=== PATIENT | female | born 1940 | race Caucasian/White ===

== ENCOUNTER → 2016-11-26 | Outpatient (CLI) | payer OTHER ==
[~2016-11-26] MED LIST: ALPR-412 PO; ASPI81TA28 PO; CALC0.2510 PO; CALC500C70 PO; CRG125 PO; DIPH-437 PO; ESTRO TOP; FLUT0.15 NAE; FLUT1INH7 INH; HYDR-5688 PO; HYZ/10015 PO; LEVO-217 PO; LEVO50TA PO; LOSA100T66 PO; MONT1TAB3 PO; NXM/40 PO; PHEN-775 PO; PRLSR20 PO; SULF800T23 PO; SYMIN160 INH; TYLOTC500 PO; VNTHFA/IN INH
== END | disposition home or self-care (01) ==
LOC: C.LAB1850 11:56
PROVIDERS: ATTEND Internal Medicine Endocrinology, Diabetes & Metabolism
DX: Z86.39 Personal history of other endocrine, nutritional and metabolic disease (principal); M81.0 Age-related osteoporosis without current pathological fracture

== ENCOUNTER → 2016-11-30 | Outpatient (CLI) | payer OTHER ==
--- NOTE | 2016-11-30 11:56 | DIAGNOSTIC IMAGING REPORT ---
THYROID ULTRASOUND HISTORY: Thyroid nodules MULTIPLE THYROID NODULES COMPARISON: 03/08/2015 FINDINGS: Right lobe: Maximum dimension 3.7 cm. Several nodules are present largest of which has a 9 mm maximum dimension area in Left lobe: Maximum dimension 4.4 cm. Several thyroid nodules measuring up to 1.4 x 1.0 cm. Isthmus: No nodules. IMPRESSION: Multicystic multinodular thyroid with nodules stable to slightly diminished in prominence from the prior study Electronically signed by: Mitul Abebe M.D. 11/30/2016 11:55 AM Dictated Date/Time: 11/30/2016 11:53 AM
== END | disposition home or self-care (01) ==
LOC: C.ULTR 10:40
PROVIDERS: ATTEND Internal Medicine Endocrinology, Diabetes & Metabolism
DX: E04.2 Nontoxic multinodular goiter (principal)

== ENCOUNTER → 2016-12-15 | Outpatient (CLI) | payer OTHER | END | disposition home or self-care (01) | LOC: C.MAMM 08:44 | PROVIDERS: ATTEND Internal Medicine Endocrinology, Diabetes & Metabolism | DX: E21.3 Hyperparathyroidism, unspecified (principal); M81.0 Age-related osteoporosis without current pathological fracture ==

== ENCOUNTER → 2017-02-22 | Outpatient (CLI) | payer OTHER ==
[~2017-02-22] MED LIST changes: +LOSA100T30 PO; -LOSA100T66 PO
--- NOTE | 2017-02-22 12:12 | DIAGNOSTIC IMAGING REPORT ---
CHEST 2 VIEWS ROUTINE CLINICAL HISTORY: J45.41 MODERATE PERSISTENT ASTHMA COMPARISON STUDY: 07/18/2014 FINDINGS: The cardiac and mediastinal contours are normal. There is no evidence of focal pulmonary consolidation. There is no evidence of failure. No pleural effusions are visualized.[ There is a linear opacity within the left infrahilar region, representing either a vessel or scar/atelectasis. IMPRESSION: No active disease in the chest. Electronically signed by: Kike Saez M.D. 02/22/2017 12:11 PM Dictated Date/Time: 02/22/2017 12:10 PM
== END | disposition home or self-care (01) ==
LOC: C.RAD1850 11:47
PROVIDERS: ATTEND Nurse Practitioner Family
DX: J45.41 Moderate persistent asthma with (acute) exacerbation (principal)

== ENCOUNTER → 2017-03-25 | Outpatient (CLI) | payer OTHER ==
[2017-03-25 16:56] LABS: BLOOD UREA NITROGEN 11 mg/dl (7-18); BUN/CREATININE RATIO 12.5 (10-20); CREATININE 0.91 mg/dl (0.60-1.20)
== END | disposition home or self-care (01) ==
LOC: C.LAB1850 15:46
PROVIDERS: ATTEND Nurse Practitioner Family
DX: R31.29 Other microscopic hematuria (principal); R31.0 Gross hematuria; R82.8 Abnormal findings on cytological and histological examination of urine

== ENCOUNTER → 2017-03-30 | Outpatient (CLI) | payer OTHER ==
[~2017-03-30] MED LIST changes: +OPTIRAY 320 IV PRN
--- NOTE | 2017-03-30 09:07 | DIAGNOSTIC IMAGING REPORT ---
CT OF THE ABDOMEN AND PELVIS WITH AND WITHOUT CONTRAST HEMATURIA PROTOCOL CLINICAL HISTORY: Gross hematuria. COMPARISON STUDY: Abdominal ultrasound August 05, 2016. TECHNIQUE: Unenhanced and split bolus phase imaging of the abdomen and pelvis was performed. Injection of 93 cc Optiray [address] DOSE: 1347.84 mGycm FINDINGS: Visualized portions the lower chest demonstrate mild cardiomegaly and a water attenuation 5 x 1.3 cm lobulated abnormality along the right aspect of the pericardium which is consistent with a pericardial cyst. There are several hepatic cysts. There are calcified granulomas within the spleen. The pancreas and adrenal glands are normal. There is no biliary or pancreatic ductal dilatation status post cholecystectomy. There is no evidence for a bowel obstruction. There is no lymphadenopathy. A small fat-containing umbilical hernia is present. There is sigmoid diverticulosis without evidence for acute diverticulitis. There are no suspicious skeletal lesions. Left-sided parapelvic cysts are noted. There are no ureteral calculi. Note is made of a 5 mm calculus within lower pole of the left kidney. There is a 1.7 cm right renal pelvis calculus and right pelvicalyceal urothelial thickening as well as mild thickening of the proximal right ureter with minimal adjacent infiltration. No discrete mass is identified. There is moderate to marked right renal atrophy. There is no hydronephrosis. There is slight prominence of the right collecting system. No bladder abnormality is identified by CT. No solid renal lesion is identified. IMPRESSION: 1. 1.7 cm right renal pelvis calculus. No hydronephrosis. Moderate right pelvicalyceal urothelial thickening may be related to the calculus but is nonspecific and an infectious could appear similar. Although considered less likely, a neoplastic process could appear similar. No discrete mass. 2. Moderate to marked right renal atrophy. 3. 5 mm left renal calculus. No ureteral calculi. Electronically signed by: Margarito Paris M.D. 03/30/2017 9:06 AM Dictated Date/Time: 03/30/2017 8:55 AM
== END | disposition home or self-care (01) ==
LOC: C.CTS 08:09
PROVIDERS: ATTEND Nurse Practitioner Family
DX: R31.0 Gross hematuria (principal)

== ENCOUNTER → 2017-04-15 | Outpatient (CLI) | payer OTHER ==
[~2017-04-15] MED LIST changes: -LOSA100T30 PO; +LOSA100T66 PO; -OPTIRAY 320 IV PRN
--- NOTE | 2017-04-15 11:58 | DIAGNOSTIC IMAGING REPORT ---
CHEST 2 VIEWS ROUTINE CLINICAL HISTORY: COUGH (786.2) dyspnea COMPARISON STUDY: 02/22/2017 FINDINGS: The bones soft tissues and hemidiaphragms are normal. The cardiomediastinal silhouette is normal. The lungs are clear. The pulmonary vasculature is normal. IMPRESSION: Negative chest. Electronically signed by: Mitul Abebe M.D. 04/15/2017 11:57 AM Dictated Date/Time: 04/15/2017 11:56 AM
== END | disposition home or self-care (01) ==
LOC: C.RADBBURG 11:40
PROVIDERS: ATTEND Physician Assistant
DX: R05 Cough (principal)

== ENCOUNTER 2017-05-10 06:53 | Day surgery (SDC) | payer OTHER ==
[2017-04-29 12:35] VITALS: BMI 28.0
--- NOTE | 2017-04-29 13:06 | PAT Medication Instructions ---
Service Date Apr 29, 2017. Current Home Medication List Acetaminophen/Diphenhydramine (Tylenol Pm), 1 TAB PO HS Albuterol Hfa (Ventolin Hfa), Unknown Dose INH Q6H PRN for asthma Alprazolam (Alprazolam), 0.25 MG PO PRN Calcitriol (Rocaltrol Cap), 0.25 MCG PO BID Calcium/Vitamin D (Os-Andry 500 Plus D), 1 TAB PO BID Carvedilol (Coreg *), 12.5 MG PO BID Esomeprazole Magnesium (Nexium), 40 MG PO QPM Fluticasone Furoate-Vilanterol (Breo Ellipta 200-25 Mcg/INH), 1 PUFF INH QAM Fluticasone Propionate (Nasal) (Flonase Allergy Relief), 1 SPRAY LUBA HS Levothyroxine Sodium (Synthroid), 50 MCG PO QAM Losartan Potassium & Hydrochlo (Losartan Potassium/Hydroc), 1 TAB PO QAM Montelukast Sodium (Singulair), 10 MG PO HS [estro cream 1%], 1 APPLN TOP prn Medication Instructions For Your Scheduled Surgery - Hold the following medications 24 hours prior to surgery: [estro cream 1%], 1 APPLN TOP prn - Hold the following medications the morning of surgery: Calcitriol (Rocaltrol Cap), 0.25 MCG PO BID Calcium/Vitamin D (Os-Andry 500 Plus D), 1 TAB PO BID Losartan Potassium & Hydrochlo (Losartan Potassium/Hydroc), 1 TAB PO QAM - Take the following medications the morning of surgery with a sip of water OTHERWISE NOTHING TO EAT OR DRINK AFTER MIDNIGHT: Carvedilol (Coreg *), 12.5 MG PO BID Levothyroxine Sodium (Synthroid), 50 MCG PO QAM Alprazolam (Alprazolam), 0.25 MG PO PRN Albuterol Hfa (Ventolin Hfa), Unknown Dose INH Q6H PRN for asthma (use if needed ; BRING TO HOSPITAL) Fluticasone Furoate-Vilanterol (Breo Ellipta 200-25 Mcg/INH), 1 PUFF INH QAM - Take the following medications as scheduled the night before surgery: Calcitriol (Rocaltrol Cap), 0.25 MCG PO BID Calcium/Vitamin D (Os-Andry 500 Plus D), 1 TAB PO BID Carvedilol (Coreg *), 12.5 MG PO BID Alprazolam (Alprazolam), 0.25 MG PO PRN Acetaminophen/Diphenhydramine (Tylenol Pm), 1 TAB PO HS Esomeprazole Magnesium (Nexium), 40 MG PO QPM Fluticasone Propionate (Nasal) (Flonase Allergy Relief), 1 SPRAY LUBA HS Montelukast Sodium (Singulair), 10 MG PO HS Albuterol Hfa (Ventolin Hfa), Unknown Dose INH Q6H PRN for asthma If you have any questions please call us at [phone] or [phone] or [phone]
[2017-04-29 13:40] LABS: BASO % 0.5 %; BASO ABS # 0.05 K/uL (0-0.2); COMPLETE YES; EOS % 1.7 %; HEMATOCRIT 39.9 % (37-47); IG% 0.1 %; LYMPH % 25.4 %; LYMPH ABS # 2.48 K/uL (1.2-3.4); MEAN CELL VOLUME 89.1 fL (80-100); MEAN CORPUSCULAR HEMOGLOBIN 28.1 pg (25-34); MEAN CORPUSCULAR HGB CONC 31.6 g/dl (32-36); MEAN PLATELET VOLUME 9.8 fL (7.4-10.4); MONO % 9.9 %; NEUT % 62.4 %; PLATELET COUNT 279 K/uL (130-400); RED BLOOD COUNT 4.48 M/uL (4.2-5.4); WHITE BLOOD COUNT 9.75 K/uL (4.8-10.8)
[2017-04-29 13:49] LABS: URINE APPEARANCE CLEAR (CLEAR); URINE BILIRUBIN NEG (NEG); URINE COLOR YELLOW; URINE EPITHELIAL CELL AUTO 20-30 /lpf (0-5); URINE NITRITE NEG (NEG); URINE PH 6.5 (4.5-7.5); URINE SPECIFIC GRAVITY 1.013 (1.000-1.030); UROBILINOGEN NEG (NEG)
[2017-04-29 14:03] LABS: MANUAL MICROSCOPIC REQUIRED? NO; REVIEW REQ? NO
[2017-04-29 16:33] LABS: BUN/CREATININE RATIO 14.3 (10-20); CALCIUM 9.9 mg/dl (8.5-10.1); CREATININE 0.98 mg/dl (0.60-1.20); POTASSIUM 3.6 mmol/L (3.5-5.1)
[~2017-05-10] VITALS: Ht 154.9 cm; Wt 69.5 kg
[~2017-05-10 06:53] MED LIST changes: -ASPI81TA28 PO; +CIPROFLOXACIN / D5W 400 MG IV SCH; -HYDR-5688 PO; -HYZ/10015 PO; -LEVO-217 PO; -PHEN-775 PO; -PRLSR20 PO; -SULF800T23 PO; -SYMIN160 INH; -TYLOTC500 PO
[2017-05-10 07:12] VITALS: BP 142/66; PULSE 61; TEMP 36.7; O2SAT 97; Ht 154.9 cm; Wt 69.5 kg
[2017-05-10] MEDS ORDERED: SULF800T23 PO ×2 (07:31→10:03)
[2017-05-10] MEDS ORDERED: ASPI81TA28 PO (07:44)
[2017-05-10] MEDS ORDERED: ONDANSETRON INJ 2 MG/ML 2 ML VIAL IV PRN (08:00)
[2017-05-10] MEDS ORDERED: ATROPINE SULFATE 0.1 MG/ML 5ML SYR IV PRN (08:00)
[2017-05-10] MEDS ORDERED: EpHEDrine SULFATE INJ 50 MG/ML AMP IV PRN (08:00)
--- NOTE | 2017-05-10 08:37 | History & Physical Bridge Note ---
H&P Re-Evaluation Bridge Note: I have examined the patient, reviewed the History & Physical and in the interval since the performance of the History & Physical I have noted the following changes of clinical significance: No changes noted
[2017-05-10] MEDS ORDERED: ONDANSETRON INJ 2 MG/ML 2 ML VIAL ONE (08:44)
[2017-05-10] MEDS ORDERED: DEXAMETHASONE SOD INJ 4 MG/ML VIAL ONE (08:44)
[2017-05-10] MEDS ORDERED: FENTANYL CITRATE INJ 50 MCG/1 ML 2 ML VIAL ONE (08:44)
[2017-05-10] MEDS ORDERED: LIDOCAINE HCL 2% 2 ML VIAL (20MG/ML) ONE (08:44)
[2017-05-10] MEDS ORDERED: MIDAZOLAM HCL 1 MG/ML 2ML VIAL ONE (08:44)
[2017-05-10] MEDS ORDERED: PROPOFOL IV EMULSION 10 MG/ML 20 ML VIAL IV ONE (08:44)
[2017-05-10] MEDS ORDERED: CONRAY 30% 150ML BOTTLE ONE (09:08)
[2017-05-10] MEDS ORDERED: EpHEDrine SULFATE 50MG/5ML SYR ONE (09:17)
[2017-05-10] MEDS ORDERED: HYDR-5688 PO (10:03)
[2017-05-10] MEDS ORDERED: PHEN-775 PO (10:03)
--- NOTE | 2017-05-10 10:05 | Discharge Instructions ---
Discharge Instructions Date of Service May 10, 2017. Admission Reason for Admission: Stones Discharge Discharge Diagnosis / Problem: kidney stones Discharge Goals Goal(s): Decrease discomfort, Improve function, Increase independence, Improve disease control, Prevent Disease Progression Activity Recommendations Activity Limitations: resume your previous activity Lifting Limitations: none Exercise/Sports Limitations: none May Resume Sexual Activity: when tolerated Shower/Bathe: no limitations Driving or Machine Use: resume 1 day after discharge . Instructions / Follow-Up Instructions / Follow-Up Please keep your previously scheduled follow-up with Dr. Alves's office. He may call you to schedule your next procedure. Discharge Diet Recommended Diet: Regular Diet Procedures Procedures Performed: cystscopy, right ureteroscopy, right retrograde pyelogram, laser lithotripsy, placement of right ureteral stent Pending Studies Studies pending at discharge: no Medical Emergencies . Who to Call and When: Medical Emergencies: If at any time you feel your situation is an emergency, please call 911 immediately. . Non-Emergent Contact Non-Emergency issues call your: Urologist Call Non-Emergent contact if: you have a fever, temperature is above 101.5, your pain is not controlled, your pain is worsening . . "Provider Documentation" section prepared by Juan Meeks. . VTE Core Measure Inpt VTE Proph given/why not?: Treatment not indicated [place] Drug Monitoring Program Search Results: patient reviewed within database, no issues identified
[2017-05-10] MEDS ORDERED: SODIUM CHLORIDE 0.9% 1000ML 1,000 ML IV SCH (10:06)
--- NOTE | 2017-05-10 10:12 | [facility] Operative Report ---
Operative Report Operative Date May 10, 2017. 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 right renal stone for chemical analysis Drains 6 Micronesian by 24 cm Anesthesia Gen. Complication(s) None Disposition Recovery Room / PACU (stable) Indications Hematuria and renal stone Description of Procedure Dylon Mendoza was identified in the preoperative holding area, appropriate informed consent was reviewed and completed and the patient was transported to the operating suite. Upon arrival she received appropriate preoperative antibiotics in the form of ciprofloxacin. Adequate general anesthesia was achieved and she was placed in dorsal lithotomy position. Following sterile prep and drape I entered the bladder with a 22 Micronesian cystoscope in 30 lens. Full inspection of the bladder was carried out. No mucosal abnormalities were noted. Ureteral orifices were in orthotopic position. I cannulated the right ureteral orifice with a sensor wire and a 10 Micronesian double-lumen catheter. The wire advanced to the kidney under fluoroscopic guidance without difficulty. Of note there was a very large opacity visualized in the presumed area of the renal pelvis. A second wire was guided into the kidney as well. I then withdrew the 10 Micronesian double-lumen catheter and passed a ureteral access sheath. I subsequently passed a flexible ureteroscope into the kidney. Full renoscopy was carried out. She has a very large calculus floating freely in the renal pelvis. There appeared to the other smaller fragments adjacent to the stone. The mucosa of the renal pelvis was quite inflamed without evidence of tumor. This mucosa was quite friable and even with tractional from my scope, there was a small amount of bleeding. I passed a 400 laser fiber I commenced laser lithotripsy. I was able to fragment the vast majority of the stone. Towards end of the case visualization was somewhat compromised secondary to a small amount of bleeding, and I concluded the case. On fluoroscopic evaluation and vast majority of the stone appears to been treated. A significant amount of stone debris was irrigated out of the kidney during the course of this case. A portion of the stone debris was collected and passed off the table as a specimen. I performed a very careful exit ureteroscopy while simultaneously withdrawing a ureteral access sheath. There is no evidence of ureteral trauma. I repositioned the 10 Micronesian double-lumen catheter over a wire and performed retrograde pyelogram. There is no extravasation. I placed a 6 Micronesian by 24 cm double-J ureteral stent over the existing wire. There was a good curl in the upper pole of the kidney as well as in the bladder. Bladder was decompressed and the case concluded. Patient was extubated and taken to the PACU in stable condition. I attest to the content of the Intraoperative Record and any orders documented therein. Any exceptions are noted below.
[2017-05-10] MEDS ORDERED: TAMSULOSIN HCL 0.4 MG CAP PO ONE (10:15)
[2017-05-10] MEDS ORDERED: HYDROCODONE/ACETAMOPHEN 5/325MG TAB PO PRN ×2 (10:15)
--- NOTE | 2017-05-10 10:32 | Anesthesiology Progress Note ---
Anesthesia Post Op Note Date & Time May 10, 2017 at 10:32 Vital Signs Pain Intensity: 0 Vital Signs Past 12 Hours Date Time Temp Pulse Resp B/P (MAP) Pulse Ox O2 Delivery O2 Flow Rate FiO2 05/10/17 10:23 55 20 05/10/17 10:23 52 20 100 05/10/17 10:22 143/59 05/10/17 10:18 56 14 100 05/10/17 10:18 56 14 05/10/17 10:17 136/64 05/10/17 10:13 53 20 05/10/17 10:13 56 20 100 05/10/17 10:12 132/64 05/10/17 10:10 54 16 132/64 100 Mask 13 05/10/17 10:08 54 21 05/10/17 10:08 53 21 99 05/10/17 10:06 130/79 05/10/17 10:04 123/67 05/10/17 10:03 60 98 05/10/17 10:03 60 05/10/17 10:03 36.0 62 16 123/67 98 Mask 13 05/10/17 07:12 36.7 61 20 142/66 (91) 97 Room Air Notes Mental Status: alert / awake / arousable, participated in evaluation Pt Amnestic to Procedure: Yes Nausea / Vomiting: adequately controlled Pain: adequately controlled Airway Patency, RR, SpO2: stable & adequate BP & HR: stable & adequate Hydration State: stable & adequate Anesthetic Complications: no major complications apparent
[2017-05-10] MEDS: FENTANYL CITRATE INJ 50 MCG/1 ML 2 ML VIAL IV PRN ×4 (10:43→10:58)
[2017-05-10] MEDS ORDERED: LACTATED RINGER'S 1000ML 1,000 ML IV ONE (11:00)
[2017-05-10] MEDS: HYDROmorphone INJ 1 MG/ML SYR IV PRN ×2 (11:06→11:11)
[2017-05-10] MEDS ORDERED: KETOROLAC TROMETHAMINE 30 MG/ML VIAL ONE (11:11)
[2017-05-10 11:40] VITALS: BP 143/58; PULSE 68; TEMP 36.5; O2SAT 97
[2017-05-10 12:10] VITALS: BP 142/67; PULSE 65; TEMP 36.5; O2SAT 94
[2017-05-10] MEDS ORDERED: ONDANSETRON 4MG OD TAB PO STA (12:58)
[2017-05-10 13:00] VITALS: BP 135/71; PULSE 75; TEMP 36.5; O2SAT 97
== END 2017-05-10 13:10 | disposition home or self-care (01) ==
LOC: C.ACU 06:53
PROVIDERS: ATTEND Urology
DX: N20.0 Calculus of kidney (principal); J45.909 Unspecified asthma, uncomplicated; E78.5 Hyperlipidemia, unspecified; I10 Essential (primary) hypertension; E03.9 Hypothyroidism, unspecified; M81.0 Age-related osteoporosis without current pathological fracture; Z85.828 Personal history of other malignant neoplasm of skin; Z90.49 Acquired absence of other specified parts of digestive tract; Z90.710 Acquired absence of both cervix and uterus; Z82.49 Family history of ischemic heart disease and other diseases of the circulatory system; Z80.3 Family history of malignant neoplasm of breast; Z80.0 Family history of malignant neoplasm of digestive organs; Z82.3 Family history of stroke; Z83.3 Family history of diabetes mellitus

== ENCOUNTER → 2017-05-17 | Outpatient (CLI) | payer OTHER ==
[~2017-05-17] MED LIST changes: +ASPI81TA28 PO; -CIPROFLOXACIN / D5W 400 MG IV SCH; +HYDR-5688 PO; +PHEN-775 PO; +SULF800T23 PO; +SYMIN160 INH
--- NOTE | 2017-05-17 08:17 | DIAGNOSTIC IMAGING REPORT ---
KUB HISTORY: 76 years-old Female N20.0 Calculus of kidney. Follow-up exam. COMPARISON: Retrograde cystourethrogram 05/10/2017 CT 03/30/2017 TECHNIQUE: KUB radiograph FINDINGS: Right-sided ureteral stent appears to be in satisfactory position. There are multiple calculi in the region of the right renal pelvis status post apparent lithotripsy. Previously noted large 1.7 cm calculus seen on CT dated 03/30/2017 is no longer present. No calculi are seen along the course of the right ureteral stent. Vascular calcifications are seen within the pelvis. 4 mm calculus of the inferior pole left kidney is redemonstrated. Bowel gas pattern is nonobstructive. Cholecystectomy clips noted. Degenerative changes are seen within the pelvis, hips and lumbar spine. No fracture. IMPRESSION: 1. Right-sided ureteral stent in place with multiple calculi seen within the region of the right renal pelvis. No renal calculi are seen along the course of the right ureter. 2. 4 mm calculus of the inferior pole left kidney is unchanged The above report was generated using voice recognition software. It may contain grammatical, syntax or spelling errors. Electronically signed by: Trey Abdi M.D. 05/17/2017 8:16 AM Dictated Date/Time: 05/17/2017 8:10 AM
== END | disposition home or self-care (01) ==
LOC: C.RAD 07:55
PROVIDERS: ATTEND Nurse Practitioner Family
DX: N20.0 Calculus of kidney (principal)

== ENCOUNTER → 2017-06-04 | Outpatient (CLI) | payer OTHER ==
[~2017-06-04] MED LIST changes: -PHEN-775 PO
--- NOTE | 2017-06-04 13:15 | DIAGNOSTIC IMAGING REPORT ---
(CHEST) THORAX WITHOUT CLINICAL HISTORY: Cough, asthma, malignant melanoma. COMPARISON STUDY: Chest x-ray dated 04/13/2017, CT scan dated 07/18/2014 CT DOSE: 548.80 mGycm TECHNIQUE: CT of the thorax was performed from the thoracic inlet to the lung bases. Images are reviewed in the axial, sagittal, and coronal planes. IV contrast was not administered for this examination. A dose lowering technique was utilized adhering to the principles of ALARA. FINDINGS: Thyroid: There is a multinodular thyroid gland which contains calcification. Thoracic aorta: The thoracic aorta is normal in course and caliber, noting standard 3 vessel arch anatomy. Heart: There are coronary artery calcifications. Lungs and pleural spaces: No pleural effusions are visualized. There is no focal pulmonary consolidation. There are 2 calcified left lower lobe granulomas. There is a new solid 2.5 mm noncalcified left lower lobe pulmonary nodule as visualized in image #[id number]. There is a stable solid 2 mm left lower lobe pulmonary nodule as visualized in image #[id number]. There is a stable solid 2.5 mm left apical pulmonary nodule as visualized in image #[id number]. There is a new solid 2 mm right upper lobe pulmonary nodule as visualized no #68/281. Mediastinum: There is no pathologic adenopathy by size criteria. Kimberli: There are calcified left hilar lymph nodes, likely postinflammatory Axilla: There is no evidence of pathologic axillary lymphadenopathy Upper abdomen: There are multiple left lobe hepatic cysts Skeletal structures: There are no lytic or blastic osseous lesions. IMPRESSION: 1. No evidence of pathologic adenopathy 2. No evidence of focal pulmonary consolidation 3. Calcified left hilar lymph nodes likely postinflammatory 4. Left lower lobe granulomatous calcifications 5. Tiny nonspecific noncalcified pulmonary nodules. There is a new solid 2.5 mm left lower lobe pulmonary nodule, and new solid 2 mm right upper lobe pulmonary nodule. 12 month follow-up is recommended unless clinical circumstances dictated otherwise. Electronically signed by: Kike Saez M.D. 06/04/2017 1:13 PM Dictated Date/Time: 06/04/2017 1:04 PM
[2017-06-04 13:20] LABS: BASO % 0.5 %; BASO ABS # 0.04 K/uL (0-0.2); COMPLETE YES; EOS % 4.6 %; HEMATOCRIT 38.8 % (37-47); IG% 0.1 %; LYMPH % 23.8 %; LYMPH ABS # 2.02 K/uL (1.2-3.4); MEAN CELL VOLUME 89.4 fL (80-100); MEAN CORPUSCULAR HEMOGLOBIN 28.3 pg (25-34); MEAN CORPUSCULAR HGB CONC 31.7 g/dl (32-36); MEAN PLATELET VOLUME 9.8 fL (7.4-10.4); MONO % 7.2 %; NEUT % 63.8 %; PLATELET COUNT 354 K/uL (130-400); RED BLOOD COUNT 4.34 M/uL (4.2-5.4)
[2017-06-04 13:23] LABS: PARTIAL THROMBOPLASTIN RATIO 0.9; PROTHROMBIN TIME (PATIENT) 10.3 SECONDS (9.0-12.0)
[2017-06-04 14:06] LABS: BLOOD UREA NITROGEN 10 mg/dl (7-18); BUN/CREATININE RATIO 10.6 (10-20); CALCIUM 10.2 mg/dl (8.5-10.1); CARBON DIOXIDE 28 mmol/L (21-32); CHLORIDE 105 mmol/L (98-107); CREATININE 0.96 mg/dl (0.60-1.20); GLUCOSE 97 mg/dl (70-99); POTASSIUM 3.2 mmol/L (3.5-5.1); SODIUM 138 mmol/L (136-145)
== END | disposition home or self-care (01) ==
LOC: C.CTS 12:07
PROVIDERS: ATTEND Physician Assistant
DX: C43.59 Malignant melanoma of other part of trunk (principal); R05 Cough

== ENCOUNTER 2017-06-10 07:32 | Day surgery (SDC) | payer OTHER ==
--- NOTE | 2017-06-09 22:47 | HISTORY & PHYSICAL EXAMINATION ---
DATE OF ADMISSION: 06/10/2017 HISTORY OF PRESENT ILLNESS: A 76-year-old female, who presented to the outpatient office on 06/02/2017 for continuation of care of [id number]-lwtdefm cough. The patient was initially seen in February 2017 with history of frequent recurrent bronchitis present since childhood. Symptoms were provoked with the spring and fall seasons as well as exposure to mold and mildew. She had been prescribed Symbicort in the past and then transitioned to Breo 200/25 for formulary purposes more recently. The patient evaluated in the office on 04/15/2017 with symptoms of low-grade fever and acute harsh cough productive of green sputum. She reported at that time a history of sick contact in her sister. She completed a course of doxycycline and prednisone taper and initially felt improved. Chest x-ray was without any evidence of infiltrate or acute pulmonary process. Unfortunately, following completion of her acute treatment, her symptoms returned and were accompanied by sinus congestion with clear rhinorrhea. Additionally, she reported some intermittent symptoms of acid reflux as well. Of note, she has required prednisone x3 since the spring. She did attempt to return to Symbicort with her symptoms; however, is not sure if this has been helpful. PAST MEDICAL HISTORY: 1. Cough variant asthma. 2. Basal cell carcinoma. 3. Acid reflux. 4. Hyperparathyroid. 5. Hypothyroid. 6. Osteoporosis. 7. History of melanoma. 8. History of gastric ulcer. 9. History of squamous cell carcinoma of the skin. 10. Nephrolithiasis. PAST SURGICAL HISTORY: 1. Breast surgery - lumpectomy. 2. Cataract surgery. 3. Nose surgery. 4. Cholecystectomy. 5. Hysterectomy. 6. Knee surgery. 7. Parathyroid surgery. 8. Tubal ligation. FAMILY HISTORY: 1. Cerebral thrombosis. 2. Hypertension. 3. Breast cancer. 4. Cardiac disorder. 5. Hypertension. 6. Colon cancer. 7. CVA. 8. Diabetes mellitus. 9. Liver cancer. 10. Lung disease. 11. Myocardial infarction. 12. Polycystic kidney disease. 13. Nephrolithiasis. SOCIAL HISTORY: 1. The patient is . 2. The patient is a lifelong nonsmoker. 3. The patient reports social alcohol use. CURRENT MEDICATIONS: 1. Montelukast sodium 10 mg oral tablet: Take 1 tablet at bedtime. 2. Symbicort 160/4.5 mcg per ACT inhalation aerosol: Inhale 2 puffs twice daily, rinse mouth after use. 3. Calcitriol 0.25 mcg oral capsule: Take 1 capsule daily. 4. Calcium carbonate, vitamin D 500/400 mg unit oral tablet: Take 1 tablet twice daily. 5. Vitamin D 2000 unit oral capsule: Take 1 tablet daily with the main meal. 6. Albuterol 2.5 mg per 3 mL nebulizer solution: Take as directed. 7. Alprazolam 0.25 mg oral tablet: Take 1 tablet daily as needed. 8. Carvedilol 12.5 mg oral tablet: Take 1 tablet twice daily. 9. Estrone 1% cream: Use as directed. 10. Fluticasone propionate 50 mcg per ACT nasal suspension: Use 1 spray each nostril twice daily. 11. Levothyroxine sodium 50 mcg oral tablet: Take 1 tablet every morning. 12. Losartan potassium/hydrochlorothiazide 100/12.5 mg oral tablet: Take 1 tablet daily. 13. Nexium 40 mg oral capsule: Take 1 capsule delayed release daily. ALLERGIES: No known drug allergies. PHYSICAL EXAMINATION: VITAL SIGNS: Blood pressure 122/76, right upper extremity, sitting, height 5 feet 1 inch, weight 151 pounds, temperature 97.9 degrees Fahrenheit, respiratory rate 18 respirations per minute, oxygen saturation 96% on room air, heart rate 78 beats per minute. CONSTITUTIONAL: Well-developed, well-nourished female. No acute distress. HEAD: Positive facial symmetry. EYES: EOMI, right 3 mm, left 2 mm -- no conjunctival injection. MOUTH: Mallampati 1. No erythema, exudate, or postnasal drip. NECK: Trachea is midline without adenopathy or masses. RESPIRATORY: Nonlabored respirations. Coarse cough, persistent throughout exam. No wheeze, no rales, no rhonchi. No clubbing or cyanosis. CARDIOVASCULAR: Regular rate and rhythm. No murmurs, rubs or gallops. +2 radial pulses bilaterally. Less than 1 second capillary refill. ABDOMEN: Soft, active bowel sounds INTEGUMENTARY: No rashes or ecchymosis. MUSCULOSKELETAL/EXTREMITIES: Moving and developed symmetrically. No peripheral edema. No calf tenderness. NEUROLOGIC: Alert and oriented. Data recall intact. Appropriate affect. REVIEW OF SYSTEMS: CONSTITUTIONAL: Denies fevers or chills. EYES: Negative. ENT: Negative. Denies any pharyngitis or vocal hoarseness. CARDIOVASCULAR: Denies chest pain or palpitations. RESPIRATORY: Positive for cough as noted in the HPI. No orthopnea or dyspnea with exertion. HEMATOLOGIC/LYMPHATICS: Negative. ASSESSMENT AND PLAN: A 76-year-old female, who presents for continuation of care of persistent cough with the setting of cough variant asthma. Symptoms had temporarily resolved again with acute treatment, but has once again recurred. Additionally, she complains of sinus reflux symptoms. 1. Complete sinus x-ray - 3 views. 2. Begin ranitidine QHS. 3. Bronchoscopy with appropriate pre-procedural blood work to determine if there is any additional reason for recurrent exacerbation. 4. CT of the chest without contrast. Patient case reviewed and agree with plan MTDD
[~2017-06-10] VITALS: Ht 156.2 cm; Wt 68.0 kg
[2017-06-10] VITALS (14 sets, daily range): BP systolic 142–183; BP diastolic 62–98; PULSE 54–73; TEMP 36.4–36.9; O2SAT 90–100; Ht 156.2 cm; Wt 68.0 kg
[~2017-06-10 07:32] MED LIST changes: -SYMIN160 INH
[2017-06-10] MEDS ORDERED: FENTANYL CITRATE 100 MCG 2 ML CARP IV ONE (07:33)
[2017-06-10] MEDS ORDERED: MIDAZOLAM HCL 5 MG/ML 1 ML VIAL IV ONE ×2 (07:33→10:15)
--- NOTE | 2017-06-10 08:12 | Procedure Note ---
Pre-Mod Sedation Assessment General Date of Moderate Sedation: Jun 10, 2017. Review Cardiovascular: regular rate, rhythm, no edema, no gallop, no JVD, no murmur Abdomen: normal bowel sounds, non tender, soft, no organomegaly, no pulsatile mass Lungs: chest non-tender, lungs clear, normal breath sounds, no respiratory distress Airway Class: II Pre-Sedation Airway Assessment Oral Cavity: WNL Able to Visualize Vocal Cords: Yes Short Thick Neck: No Smoking Status: Never Smoker Mallampati Classification: Class II ASA Classification: Class III Procedure Planning Contraindications-for Mod Sed: None Yes Notes The planned sedation has been discussed with the patient and consent obtained. I have identified the patient, determined the appropriateness of sedation and have assessed the patient immediately prior to the procedure. All medicine(s) and interventions are by my order.
[2017-06-10] MEDS ORDERED: SYMIN160 INH (08:16)
[2017-06-10] MEDS ORDERED: NURSING VERBAL MED ORDER ONE ×2 (08:45→10:00)
[2017-06-10] MEDS ORDERED: D5W AND 1/2NSS 1,000 ML IV SCH (09:00)
--- NOTE | 2017-06-10 09:46 | Bronchoscopy Procedure Note ---
Bronchoscopy Procedure Note Procedure: Bronchoscopy, conscious sedation, bronchial lavage Consent: Obtained through the patient placed into the chart Pre-procedural diagnosis: Chronic cough Post-procedural diagnosis: Chronic cough Start time: 919 End time: 935 Total time: 16 minutes Analgesia: 2% liquid lidocaine: Via nebulizer 4% gel lidocaine: Via right naris 2% liquid lidocaine: Via bronchoscopy Sedation: Versed IV: 3mg Fentanyl IV: 75g Procedure: The Olympus video bronchoscope was used for this procedure and passed down through the right naris Right naris/posterior naris/posterior oropharynx: Anatomically within normal limits Glottis: Anatomically within normal limits Vocal cords: Proper abduction and abduction, anatomically within normal limits Subglottis/trachea/Nini: Anatomically within normal limits Right bronchial tree: Right mainstem bronchus: Anatomically within normal limits Right upper lobe: Anatomically within normal limits Bronchus intermedius: Anatomically within normal limits Right middle lobe: Anatomically within normal limits Right lower lobe: Anatomically within normal limits Findings: No significant findings noted Left bronchial tree: Left mainstem bronchus: Anatomically within normal limits Left upper lobe: Anatomically within normal limits Lingula: Anatomically within normal limits Left lower lobe: Anatomically within normal limits Findings: No significant findings noted Bronchial alveolar lavage: Right middle lobe EBL: None Complications: None Follow-up: In the [facility]
--- NOTE | 2017-06-10 09:53 | Discharge Instructions ---
Discharge Instructions Date of Service Jun 10, 2017. Admission Reason for Admission: Cough, Asthma, Malignant Melanoma Discharge Discharge Diagnosis / Problem: chronic cough Discharge Goals Goal(s): Diagnostic testing Activity Recommendations Activity Limitations: resume your previous activity . Instructions / Follow-Up Instructions / Follow-Up Follow-up in the [facility] pulmonary department with provider Randi Green Current Hospital Diet Patient's current hospital diet: Discharge Diet Recommended Diet: Regular Diet Procedures Procedures Performed: Bronchoscopy, bronchial lavage, conscious sedation Pending Studies Studies pending at discharge: no Medical Emergencies . Who to Call and When: Medical Emergencies: If at any time you feel your situation is an emergency, please call 911 immediately. . Non-Emergent Contact Non-Emergency issues call your: Vice President Financial . . "Provider Documentation" section prepared by Riccardo Ritchie. . VTE Core Measure Inpt VTE Proph given/why not?: Treatment not indicated
[2017-06-10] MEDS ORDERED: FENTANYL CITRATE INJ 50 MCG/1 ML 2 ML VIAL IV ONE (10:15)
[2017-07-07 11:15] LABS: HERPES SIMPLEX CULT SOURCE RESPIRATORY-R MIDDLE; HERPES SIMPLEX VIRUS CULT NOT ISOLATED (NOT ISOLATED)
== END 2017-06-10 12:14 | disposition home or self-care (01) ==
LOC: C.ACU 07:32
PROVIDERS: ATTEND Internal Medicine Critical Care Medicine
DX: R05 Cough (principal); J45.909 Unspecified asthma, uncomplicated; I10 Essential (primary) hypertension; E03.9 Hypothyroidism, unspecified; M81.0 Age-related osteoporosis without current pathological fracture; Z85.828 Personal history of other malignant neoplasm of skin; Z90.710 Acquired absence of both cervix and uterus; Z80.3 Family history of malignant neoplasm of breast; Z79.899 Other long term (current) drug therapy

== ENCOUNTER → 2017-06-16 | Outpatient (CLI) | payer OTHER ==
[~2017-06-16] MED LIST changes: -FLUT1INH7 INH; -HYDR-5688 PO; -SULF800T23 PO; +SYMIN160 INH
--- NOTE | 2017-06-16 09:10 | DIAGNOSTIC IMAGING REPORT ---
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 TECHNIQUE: Single supine view of the abdomen was obtained. COMPARISON: 05/17/2017. FINDINGS: Evaluation of the kidneys is slightly limited due to stool and bowel gas most prominently over the right kidney. Interval removal of the right ureteral stent. Previously noted calcifications projecting over the right kidney are not well visualized on the current exam. Cholecystectomy clips. Atherosclerosis. Nonobstructive bowel gas pattern. Degenerative changes of the lumbar spine. Previously noted left lower pole renal calculus is again visualized. IMPRESSION: 1. Interval removal of the right ureteral stent with nonvisualization of right renal calculi, possibly indicating clearance. Evaluation slightly limited due to overlying bowel gas and stool. 2. Unchanged left lower pole renal calculus. Electronically signed by: Jefferson Luis M.D. 06/16/2017 9:09 AM Dictated Date/Time: 06/16/2017 9:07 AM
== END | disposition home or self-care (01) ==
LOC: C.RAD 08:48
PROVIDERS: ATTEND Urology
DX: N20.0 Calculus of kidney (principal)

== ENCOUNTER → 2017-06-16 | Outpatient (CLI) | payer OTHER | END | disposition home or self-care (01) | LOC: C.LABSPEC 17:14 | PROVIDERS: ATTEND Urology | DX: N20.0 Calculus of kidney (principal) ==

== ENCOUNTER → 2017-11-12 | Outpatient (CLI) | payer OTHER ==
[~2017-11-12] MED LIST changes: +LOSA100T30 PO; -LOSA100T66 PO
== END | disposition home or self-care (01) ==
LOC: C.LAB1850 10:32
PROVIDERS: ATTEND Internal Medicine Endocrinology, Diabetes & Metabolism
DX: E03.9 Hypothyroidism, unspecified (principal)

== ENCOUNTER → 2017-11-17 | Outpatient (CLI) | payer OTHER ==
[2017-11-17 15:53] LABS: ALBUMIN 3.5 gm/dl (3.4-5.0); CREATININE 0.78 mg/dl (0.60-1.20)
== END | disposition home or self-care (01) ==
LOC: C.LAB1850 14:50
PROVIDERS: ATTEND Internal Medicine Endocrinology, Diabetes & Metabolism
DX: M81.0 Age-related osteoporosis without current pathological fracture (principal)

== ENCOUNTER → 2017-11-24 | Day surgery (SDC) | payer OTHER ==
[~2017-11-24] VITALS: Ht 157.5 cm; Wt 66.0 kg
[~2017-11-24] MED LIST changes: +ACETAMINOPHEN 500 MG TAB PO ONE; +ACETAMINOPHEN 500 MG TAB PO SCH; +ADVIN25/60 INH; +ZOLEDRONIC ACID INJ 5 MG in EMPTY BAG 0 ML IV SCH
[2017-11-24 10:25] VITALS: BP 149/89; PULSE 59; TEMP 36.7; O2SAT 93; Ht 157.5 cm; Wt 66.0 kg
== END | disposition home or self-care (01) ==
LOC: C.MTU 09:35
PROVIDERS: ATTEND Internal Medicine Endocrinology, Diabetes & Metabolism
DX: M81.0 Age-related osteoporosis without current pathological fracture (principal)

== ENCOUNTER 2017-12-09 09:58 | Emergency (ER) | payer OTHER ==
[~2017-12-09] VITALS: Ht 157.5 cm; Wt 67.9 kg
[~2017-12-09 09:58] MED LIST changes: -ACETAMINOPHEN 500 MG TAB PO ONE; -ACETAMINOPHEN 500 MG TAB PO SCH; -SYMIN160 INH; -ZOLEDRONIC ACID INJ 5 MG in EMPTY BAG 0 ML IV SCH
[2017-12-09 10:08] VITALS: Ht 157.5 cm; Wt 67.9 kg
[2017-12-09] MEDS ORDERED: METHYLPREDNISOLONE 125 MG VIAL IM STA (10:34)
[2017-12-09] MEDS ORDERED: ALBUT/IPRATROP 3MG/0.5MG NEB 3 ML VIAL INH STA (10:34)
[2017-12-09] MEDS ORDERED: BENZONATATE 100MG CAP PO ONE (10:45)
--- NOTE | 2017-12-09 11:24 | DIAGNOSTIC IMAGING REPORT ---
CHEST 2 VIEWS ROUTINE HISTORY: 77 years-old Female cough eval for pna acute cough with clinical concern for pneumonia COMPARISON: Chest CT 06/04/2017, chest radiographs 04/15/2017 TECHNIQUE: PA and lateral views of the chest FINDINGS: Cardiomediastinal and hilar silhouettes are within normal limits. Mild atherosclerosis of the aorta. Calcified granulomas of the left lung base are noted. There is no pneumothorax, pleural effusion, focal airspace consolidation or overt pulmonary edema. Degenerative changes are seen within the shoulders and spine. Cholecystectomy clips are noted. IMPRESSION: 1. No acute process. 2. Prior granulomatous disease. The above report was generated using voice recognition software. It may contain grammatical, syntax or spelling errors. Electronically signed by: Trey Abdi M.D. 12/09/2017 11:23 AM Dictated Date/Time: 12/09/2017 11:21 AM
[2017-12-09 11:56] LABS: INFLUENZA B ANTIGEN Neg for Influ B (NEG)
[2017-12-09] MEDS ORDERED: PRED20TA PO (12:23)
[2017-12-09] MEDS ORDERED: BENZ100C84 PO (12:23)
[2017-12-09 12:27] VITALS: BP 159/82; PULSE 71; TEMP 36.9; O2SAT 98
--- NOTE | 2017-12-09 17:54 | EMERGENCY ROOM VISIT NOTE ---
History Report prepared by Ming: Chuck Singh Under the Supervision of: Dr. Riccardo Lomas M.D. First contact with patient: 10:26 Chief Complaint: COUGH Stated Complaint: COUGH ASTHMA History of Present Illness The patient is a 77 year old female who presents to the Emergency Room with complaints of a worsening cough for the past 3 weeks. The patient states that she has a history of asthma, and she was exposed to diesel fumes which caused her to have this cough which has worsened. She states that when her asthma acts up she coughs. She additionally states that she had some congestion yesterday, and she has bringing up phlegm when she coughs, and she does not think that it is green. She states that she took Mucinex last night, and she uses an Advair for her asthma. The patient denies any fever, chest pain, nausea , vomiting, leg swelling, and body aches. The patient reports that her recently had a cough ten days ago, and her [id number] had the flu and pneumonia in early October. Source of History: patient Onset: 3 weeks ago Position: other (global) Quality: other (cough) Timing: worsening Associated Symptoms: No fevers, No chest pain, No nausea, No vomiting Note: Associated symptoms: Light headed sometimes with coughing. Review of Systems See HPI for pertinent positives & negatives. A total of 10 systems reviewed and were otherwise negative. Past Medical & Surgical Medical Problems: (1) Asthma (2) Benign hypertension (3) Bronchitis (4) Cholecystectomy (5) Cholecystitis (6) Gastroesophageal reflux disease (7) Hypothyroidism (8) Hysterectomy (9) Kidney disease (10) Kidney stone (11) Osteoporosis (12) Vaginitis Family History Cancer Diabetes mellitus Gallbladder disease Heart disease Hypertension Kidney disease Kidney stones Lung disease Social History Smoking Status: Never Smoker Alcohol Use: occasionally Marital Status: Housing Status: lives with family Occupation Status: retired Current/Historical Medications Scheduled Acetaminophen/Diphenhydramine (Tylenol Pm), 1 TAB PO HS Alprazolam (Alprazolam), 0.25 MG PO PRN Aspirin (Aspirin Ec), 81 MG PO QAM Calcitriol (Rocaltrol Cap), 0.25 MCG PO BID Calcium/Vitamin D (Os-Andry 500 Plus D), 1 TAB PO BID Carvedilol (Coreg *), 12.5 MG PO BID Esomeprazole Magnesium (Nexium), 40 MG PO QPM Fluticasone Prop/Salmeterol (Advair Diskus 250/50 60 Dose), 1 INH BID Fluticasone Propionate (Nasal) (Flonase Allergy Relief), 1 SPRAY LUBA HS Levothyroxine Sodium (Synthroid), 50 MCG PO QAM Losartan Potassium & Hydrochlo (Losartan Potassium/Hydroc), 1 TAB PO QAM Montelukast Sodium (Singulair), 10 MG PO HS Prednisone (Prednisone), 3 TAB PO DAILY Scheduled PRN Albuterol Hfa (Ventolin Hfa), Unknown Dose INH Q6H PRN for asthma Benzonatate (Tessalon Perles), 100 MG PO Q8 PRN for Cough Allergies Coded Allergies: Ciprofloxacin (Verified Adverse Reaction, Intermediate, VOMITING, 12/09/17) Physical Exam Vital Signs Date Time Temp Pulse Resp B/P (MAP) Pulse Ox O2 Delivery O2 Flow Rate FiO2 12/09/17 12:27 36.9 71 20 159/82 98 12/09/17 11:50 71 20 159/82 98 Room Air 12/09/17 10:32 Room Air 12/09/17 10:08 36.9 75 20 172/84 97 Room Air Physical Exam Constitutional: Vital signs reviewed. Eyes: Pupils are equal round reactive to light. Conjunctiva are noninjected. ENT: Pharynx is clear without erythema or exudate. Mucous membranes are moist. Neck supple without meningeal signs. Respiratory: Coughing throughout the exam. Slight scattered wheezing. Breath sounds are equal bilaterally. Cardiovascular: Regular rate and rhythm. No rubs or gallops. GI: Soft, nondistended and nontender. Bowel sounds are present. Musculoskeletal: No peripheral edema. No lower extremity tenderness. Integumentary: No cyanosis. Neurological: The patient is awake and alert. No focal deficits. Psychiatric: Normal affect. Medical Decision & Procedures ER Provider Diagnostic Interpretation: Radiology results as stated below per my review and the radiologist's interpretation: CHEST 2 VIEWS ROUTINE HISTORY: 77 years-old Female cough eval for pna acute cough with clinical concern for pneumonia COMPARISON: Chest CT 06/04/2017, chest radiographs 04/15/2017 TECHNIQUE: PA and lateral views of the chest FINDINGS: Cardiomediastinal and hilar silhouettes are within normal limits. Mild atherosclerosis of the aorta. Calcified granulomas of the left lung base are noted. There is no pneumothorax, pleural effusion, focal airspace consolidation or overt pulmonary edema. Degenerative changes are seen within the shoulders and spine. Cholecystectomy clips are noted. IMPRESSION: 1. No acute process. 2. Prior granulomatous disease. The above report was generated using voice recognition software. It may contain grammatical, syntax or spelling errors. Electronically signed by: Trey Abdi M.D. 12/09/2017 11:23 AM Dictated Date/Time: 12/09/2017 11:21 AM Laboratory Results Test 12/09/17 11:00 Influenza Type A Antigen Neg for Influ A (NEG) Influenza Type B Antigen Neg for Influ B (NEG) Laboratory results as reviewed by me. Medications Administered Medications (Trade) Dose Ordered Sig/Patience Route Start Time Stop Time Status Last Admin Dose Admin Albuterol/ Ipratropium (Duoneb) 3 ml NOW STAT INH 12/09/17 10:34 12/09/17 10:36 DC 12/09/17 11:02 3 ML Benzonatate (Tessalon Perles Cap) 100 mg NOW ONCE PO 12/09/17 10:45 12/09/17 10:46 DC 12/09/17 11:02 100 MG Methylprednisolone Sodium Succinate (Solu-Medrol IV) 125 mg NOW STAT IM 12/09/17 10:34 12/09/17 10:36 DC 12/09/17 11:01 125 MG ED Course 1026: The patient was evaluated in room B12. A complete history and physical exam was performed. 1034: Solu-Medrol 125mg IM, DuoNeb 3ml INH 1045: Tessalon Perles 100mg PO 1221: I reevaluated the patient, and she was feeling better. I discussed the test results with her. She will be discharged home. Medical Decision This is a 77-year-old female presents with a cough. Differential diagnosis includes acute asthma exacerbation, bronchitis, pneumonia, influenza, URI. I did perform a limited focused review of portions of the patient's old chart on the electronic medical record. The patient had a bronchoscopy in 06/10 for a chronic cough which showed no significant findings. She had a CT Chest done at that time, and it showed some pulmonary nodules. I did evaluate the patient as noted above. The patient is presenting with significant coughing. She does state that she has significant coughing when she has asthma exacerbations more so than she has wheezing. I did treat her with a DuoNeb here. She was also given Solu-Medrol IM. She was also given Tessalon Perles. I did order and personally review the patient' chest x-ray as described above. There is no evidence of pneumonia. A rapid flu test was obtained and was negative. I did reassess the patient. Her coughing seems to improve slightly. Wheezing is improved on reexamination. I did discuss the test results with the patient. At this time I see no indication for antibiotics. I did recommend she follow-up closely with her doctor. She was discharged with a prescription for prednisone and Tessalon Perles. Medication Reconcilliation Current Medication List: was personally reviewed by me Blood Pressure Screening Patient's blood pressure: Elevated blood pressure Blood pressure disposition: Referred to PCP Impression Primary Impression: Asthma exacerbation Additional Impression: Cough Scribe Attestation The scribe's documentation has been prepared under my direct and personally reviewed by me in its entirety. I confirm that the note above accurately reflects all work, treatment, procedures, and medical decision making performed by me. Departure Information Dispostion Home / Self-Care Prescriptions Benzonatate (Tessalon Perles) 100 Mg Cap 100 MG PO Q8 Y for Cough, #20 CAP Prov: Riccardo Lomas M.D. 12/09/17 Prednisone (Prednisone) 20 Mg Tab 3 TAB PO DAILY, #12 TAB FOR 4 DAYS Prov: Riccardo Lomas M.D. 12/09/17 Referrals Gail Weiss (PCP) Forms HOME CARE DOCUMENTATION FORM, IMPORTANT VISIT INFORMATION Patient Instructions Asthma - [facility], My [facility] Additional Instructions You have been examined and treated today on an emergency basis only. This is not a substitute for, or an effort to provide, complete comprehensive medical care. It is impossible to recognize and treat all injuries or illnesses in a single emergency department visit. It is therefore important that you follow up closely with your physician. Call as soon as possible for an appointment. Return for worsening symptoms or if you develop fever, vomiting, chest pain or any other concerning symptoms. Problem Qualifiers Primary Impression: Asthma exacerbation Asthma severity: moderate Asthma persistence: unspecified Qualified Codes: J45.901 - Unspecified asthma with (acute) exacerbation
== END 2017-12-09 12:30 | disposition home or self-care (01) ==
LOC: C.EDB 09:59
DX: J45.901 Unspecified asthma with (acute) exacerbation (principal); I10 Essential (primary) hypertension; K21.9 Gastro-esophageal reflux disease without esophagitis; E03.9 Hypothyroidism, unspecified; M81.0 Age-related osteoporosis without current pathological fracture; Z79.82 Long term (current) use of aspirin; Z79.51 Long term (current) use of inhaled steroids; Z88.1 Allergy status to other antibiotic agents; Z80.9 Family history of malignant neoplasm, unspecified; Z83.3 Family history of diabetes mellitus; Z83.79 Family history of other diseases of the digestive system; Z82.49 Family history of ischemic heart disease and other diseases of the circulatory system; Z84.1 Family history of disorders of kidney and ureter

== ENCOUNTER → 2018-03-02 | Outpatient (CLI) | payer OTHER ==
[~2018-03-02] MED LIST changes: +BENZ100C84 PO; -ESTRO TOP; +PRED20TA PO
--- NOTE | 2018-03-02 14:58 | DIAGNOSTIC IMAGING REPORT ---
KUB CLINICAL HISTORY: N20.0 Calcium kidney feornV52.0 UTI (urinary tract infection)RAD nephrocalcinosis COMPARISON STUDY: 06/16/2017. FINDINGS: Unchanging lower pole left renal calcification. Remainder the left kidney appears unremarkable. Right kidney is obscured by overlying bowel content. It shows no change compared to the prior study within these limitations. Several pelvic vascular calcifications are present. These are stable compared to the prior exam. IMPRESSION: 1. Unchanging calcification lower pole left kidney. 2. Nonvisualization of the right kidney due to overlying bowel content. The above report was generated using voice recognition software. It may contain grammatical, syntax or spelling errors. Electronically signed by: Mitul Abebe M.D. 03/02/2018 2:57 PM Dictated Date/Time: 03/02/2018 2:55 PM
== END | disposition home or self-care (01) ==
LOC: C.RAD1850 14:34
PROVIDERS: ATTEND Urology
DX: N20.0 Calculus of kidney (principal); N39.0 Urinary tract infection, site not specified

== ENCOUNTER → 2018-06-14 | Outpatient (CLI) | payer OTHER ==
[~2018-06-14] MED LIST changes: -BENZ100C84 PO; -PRED20TA PO
== END | disposition home or self-care (01) ==
LOC: C.LAB1850 12:37
PROVIDERS: ATTEND Internal Medicine Endocrinology, Diabetes & Metabolism
DX: N20.0 Calculus of kidney (principal); M81.0 Age-related osteoporosis without current pathological fracture

== ENCOUNTER 2020-04-03 07:00 | Observation (INO) ==
--- NOTE | 2020-04-03 08:17 | History & Physical Bridge Note ---
Date of Service April 03, 2020 History & Physical Bridge Note I have examined the patient, reviewed the History & Physical and in the interval since the performance of the History & Physical I have noted the following changes of clinical significance: no changes noted
--- NOTE | 2020-04-03 08:17 | Pre Anesthesia Assessment ---
Date of Service April 03, 2020 Pre Sedation Assessment Vital Signs Temp Pulse Resp BP Pulse Ox 04/03/20 07:18 36.7 C 68 16 151/92 H 97 Cardiovascular RRR, no murmur, no edema Respiratory normal respiratory effort, lungs clear to auscultation Pre-Sedation Airway Assessment Smoking Status: Never smoker Hx Sleep Apnea: No Short, Thick Neck: No Thyromental Distance: > or= 3.5 Finger Breadths Oral Cavity: + WNL Mallampati Class: II ASA: ASA3 NPO Status Date of Last Intake of Fluids: 04/03/20 Time of Last Intake of Fluids: 06:00 Last Oral Intake of Fluids Comment: sip with meds Date of Last Intake of Solid Food: 04/02/20 Time of Last Intake of Solid Foods: 21:00 Procedure Planning Contraindications for Sedation: none Current Medications Reviewed: Yes Notes The planned sedation has been discussed with the patient. Informed Consent was obtained. I have identified the patient, determined the appropriateness of sedation and have assessed the patient immediately prior to the procedure. All medicine(s) and interventions are by my order.
[2020-04-03] MEDS ORDERED: MIDAZOLAM HCL 1 MG/ML 2ML VIAL ONE (08:26)
[2020-04-03] MEDS ORDERED: HEPARIN (PORCINE) 1000 UNIT/ML 10 ML (CATH LAB USE ONLY) ONE (08:26)
[2020-04-03] MEDS ORDERED: NiCARDipine HCL INJ 2.5 MG/ML 10 ML AMP ONE (08:26)
[2020-04-03] MEDS ORDERED: fentaNYL citrate 100 MCG/2 ML VIAL ONE (08:26)
[2020-04-03] MEDS ORDERED: NITROGLYCERIN/D5W 100MCG/ML 20ML SYR ONE (08:27)
[2020-04-03] MEDS ORDERED: NITROGLYCERIN SL 0.4 MG/TAB TAB ONE ×2 (09:06→10:04)
[2020-04-03] MEDS ORDERED: METOPROLOL TARTRATE 1 MG/ML VIAL IV ONE ×3 (09:08→09:17)
--- NOTE | 2020-04-03 09:42 | Cardiac Catheterization ---
Cardiac Cath Procedure Brief Procedure Date April 03, 2020 Pre-Procedure Diagnosis Pre-Procedure Diagnosis: Angina and Positive Stress Test AUC Score AUC Score: 7 Post-Procedure Diagnosis Post-Procedure Diagnosis: Severe CAD (Single-vessel) Procedure(s) Performed Procedure(s) Performed: Coronary Angiography Paste Mixer Robert Olvera MD Inspecting And Testing Lead Hand(s) Alfredo Leone Estimated Blood Loss Estimated Blood Loss: <15cc Medication(s) Medication(s): Fentanyl (12.5 mcg IV), Heparin (5000 units IV), Lidocaine 1% (Local infiltration access site), Nicardipine (250 mcg intra-arterial after arterial sheath insertion), Nitroglycerin (0.4 mg sublingual) and Versed (1 mg IV) Medication(s): Metoprolol 5 mg IV x3 Preliminary Findings Codominant coronary anatomy with extremely small caliber right coronary artery Single-vessel significant coronary disease with 70 to 80% LAD stenosis at the juncture of its mid and apical portion Paroxysmal atrial fibrillation with typical angina and chest pressure induced during procedure resolving with sublingual nitroglycerin and IV metoprolol Left main: Mildly calcified vessel normal length of modest caliber and no obstruction Left anterior descending: Left anterior descending is a long type III vessel reaching well around the apex. It is moderately tortuous in its mid and apical portion. The vessel gives rise to a large septal branch in its proximal third, a moderately large bifurcating diagonal branch in its midportion and courses to terminate beyond the apex. Within the left anterior descending there is diffuse moderate irregularities with a discrete 70 to 80% stenosis at the junction of its mid and apical portions. The proximal vessel has a 30% narrowing with mild calcification and the origin of the left anterior descending diagonal is narrowed by 30%. Left circumflex: Large vessel, codominant distribution, gives rise to a large bifurcating obtuse marginal and a single posterior lateral branch. Left circumflex has moderate irregularities with a focal 30% narrowing in the proximal portion of the obtuse marginal. Posterior lateral branch is small. Right coronary artery: Very modest in caliber giving rise to 2 right ventricular branches and accessory PDA. Recommendations Recommendations: PCI without planned CABG Fluids (cc crystalloids) Fluids (cc crystalloids): 60 Anesthesia Start time 08 41, stop time 0910 Procedural Complication(s) None Disposition Recovery Room\PACU
[2020-04-03] MEDS ORDERED: CLOPIDOGREL BISULFATE 300 MG TAB ONE (10:00)
--- NOTE | 2020-04-03 10:00 | Cardiac Catheterization ---
Cardiac Cath Procedure Full Procedure Date April 03, 2020 Pre-Procedure Diagnosis Pre-Procedure Diagnosis: Angina and Positive Stress Test AUC Score AUC Score: 7 Post-Procedure Diagnosis Post-Procedure Diagnosis: Severe CAD (Single-vessel) Procedure(s) Performed Procedure(s) Performed: Coronary Angiography Ultrasound Spec Robert Olvera MD Medical Equipment Repairer(s) Alfredo Leone Estimated Blood Loss Estimated Blood Loss: <15cc Medication(s) Medication(s): Fentanyl (12.5 mcg IV), Heparin (5000 units IV), Lidocaine 1% (Local infiltration access site), Nicardipine (250 mcg intra-arterial after arterial sheath insertion), Nitroglycerin (0.4 mg sublingual) and Versed (1 mg IV) Summary of Findings Codominant coronary anatomy with extremely small caliber right coronary artery Single-vessel significant coronary disease with 70 to 80% LAD stenosis at the juncture of its mid and apical portion Paroxysmal atrial fibrillation with typical angina and chest pressure induced during procedure resolving with sublingual nitroglycerin and IV metoprolol Left main: Mildly calcified vessel normal length of modest caliber and no obstruction Left anterior descending: Left anterior descending is a long type III vessel reaching well around the apex. It is moderately tortuous in its mid and apical portion. The vessel gives rise to a large septal branch in its proximal third, a moderately large bifurcating diagonal branch in its midportion and courses to terminate beyond the apex. Within the left anterior descending there is diffuse moderate irregularities with a discrete 70 to 80% stenosis at the junction of its mid and apical portions. The proximal vessel has a 30% narrowing with mild calcification and the origin of the left anterior descending diagonal is narrowed by 30%. Left circumflex: Large vessel, codominant distribution, gives rise to a large bifurcating obtuse marginal and a single posterior lateral branch. Left circumflex has moderate irregularities with a focal 30% narrowing in the proximal portion of the obtuse marginal. Posterior lateral branch is small. Right coronary artery: Very modest in caliber giving rise to 2 right ventricular branches and accessory PDA. Impression: Single-vessel obstructive disease mid apical portion of a very large type III LAD. Patient referred for coronary intervention Hemodynamics Rest Ao:: 174/81/116 Final Ao: 142/86/109 LV: N/A Recommendations Recommendations: PCI without planned CABG Radiation Exposure (mGy) 594 Contrast (mls) 70 Fluids (cc crystalloids) Fluids (cc crystalloids): 60 Anesthesia Start time 08 41, stop time 0910 Procedural Complication(s) Patient developed chest pressure and transient hypotension as well as atrial fibrillation with moderately elevated ventricular response rate, 110 bpm during procedure. Symptoms resolved with sublingual nitroglycerin, IV metoprolol 5 mg x 3 with return to sinus rhythm Disposition Recovery Room\PACU I attest to the content of the Intraoperative Record and any orders documented therein. Any exceptions are noted below. ACC Data: Flag Signalman Cardiac Status Clinical evaluation leading to the procedure 79-year-old female with multiple cardiac risk factors used been experiencing symptoms of chest pain followed by lightheadedness and near syncope. Symptoms were reproduced during stress echocardiogram CAD Presenation: Stable angina Anginal Classification: CCS III Heart Failure: No Cardiogenic Shock within 24 Hours: No Cardiac Arrest within 24 Hours: No Imaging Studies Past 6 Months: Yes Stress Studies Past 6 Months: Yes Standard Exercise Test: No Stress Echocardiogram: Yes - Positive Coronary Anatomy Dominant: Co-Dominant Left Main (% Stenosis): Normal LAD (% Stenosis): Proximal (30%) and Mid (80%) D1 (% Stenosis): Proximal (30%) OM1 (% Stenosis): Proximal (30%) RCA (% Stenosis): Normal (Very small caliber vessel) Diagnostic Physicians Name: Robert Olvera MD Status: Elective Closure Device Percutaneous Entry Location: Radial Recommendations: PCI without planned CABG
--- NOTE | 2020-04-03 10:11 | Cardiac Catheterization ---
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 Cardiac Status Clinical evaluation leading to the procedure CAD Presenation: Unstable angina Anginal Classification: CCS III Heart Failure: No Cardiogenic Shock within 24 Hours: No Cardiac Arrest within 24 Hours: No Imaging Studies Past 6 Months: Yes Stress Studies Past 6 Months: Yes Stress Echocardiogram: Yes - Positive Diagnostic Physicians Name: Ward Valencia MD Status: Elective Closure Device Percutaneous Entry Location: Radial Closure Device: Radial Band Recommendations: PCI without planned CABG PCI Indication: + Stress Test and Unstable Angina Lesion Segment Name: Mid LAD Culprit Artery: Yes Stenosis Prior to Rx (%): 80 Chronic Total Occlusion: No IVUS: No FFR: No Pre-Procedure GERI Flow: 3 Previously Treated Lesion: No Lesion Complexity: Non-High/Non-C Lesion Length (mm): 12 Thrombus Present: No Bifurcation Lesion: No Guidewire Across Lesion: Stenosis Post-Procedure (%): 0 Post-Procedure GERI Johnny w: 3 Devices(s) Deployed: Yes Yes Intraprocedure Events Significant Disection: No Perforation: No Cardiac Cath Procedure Full Procedure Date April 03, 2020 Pre-Procedure Diagnosis Pre-Procedure Diagnosis: Angina and Positive Stress Test AUC Score AUC Score: 7 Post-Procedure Diagnosis Post-Procedure Diagnosis: Severe CAD (Single-vessel) and Successful PCI Procedure(s) Performed Procedure(s) Performed: Coronary Angiography and Drug Eluting Stent Chief Controller Ward Valencia MD Programmer Analyst Consultant(s) Alfredo Leone Estimated Blood Loss Estimated Blood Loss: <15cc Medication(s) Medication(s): Clopidogrel, Fentanyl (12.5 mcg IV), Heparin (5000 units IV), Nicardipine (250 mcg intra-arterial after arterial sheath insertion), Nitroglycerin (0.4 mg sublingual) and Versed (1 mg IV) Summary of Findings Indication: Angina, positive stress test Access: 6 Fr slender right radial artery Catheters: EBU 3.5 guide Findings: For full details of patient's coronary angiography please see cath report dictated by Dr. Olvera. Briefly, patient found to have severe single vessel disease with a 80 % stenosis involving the mid to distal LAD. Decision to proceed with PCI. -- PCI -- Antithrombotic therapy: Heparin, clopidogrel Procedure: Left main cannulated with EBU 3.5 guide Aviation Safety Equipment Technician 50 wire passed across lesion into distal vessel Mid LAD lesion predilated with 2.0 compliant balloon Dilated lesion stented with 2.25 x 22 mm yareli drug-eluting Stent post-dilated with stent balloon IC vasodilators administered for spasm Post procedure GERI 3 flow, stent well expanded with minimal residual stenosis and no apparent cardiac complications. Arterial Closure: TR band Summary: 1. Successful PCI of mid LAD with single drug-eluting stent (2.25 x 22 mm Yareli). Recommendations: To PCU for continued monitoring Loaded with clopidogrel 600 mg in Marketing Professor Continue dual-antiplatelet therapy for at least 6 months Continue statin, and ASCVD risk factor modification Consult cardiac Rehab Hemodynamics Rest Ao:: 174/81/116 Final Ao: 142/86/109 LV: -- Recommendations Recommendations: PCI without planned CABG Specimens Specimens: None Radiation Exposure (mGy) 594 Contrast (mls) 70 Fluids (cc crystalloids) Fluids (cc crystalloids): 60 Drains Drains: None Anesthesia Moderate Procedural Complication(s) None Disposition PCU I attest to the content of the Intraoperative Record and any orders documented therein. Any exceptions are noted below. [facility] Card Cath Procedure Codes Moderate Sedation Procedure 1: Sedation/Anesthesia: 49673 Mod Sedation by a different physician ;Init15 Min Child Age 5&Up Stenting Procedure 1: Cardiovascular Stent Procedures: 62559 Perc transcatheter placement of intracoronary stent(s), with ang PG Care Time/CCT Total # of Minutes Spent Total Time Spent with Patient: Total time spent is greater than 50% in coordination of care (as documented) at patient's floor/unit and/or counseling patient:
[2020-04-03] MEDS ORDERED: ACETAMINOPHEN 325 MG TAB PO PRN (10:22)
[2020-04-03] MEDS ORDERED: ONDANSETRON INJ 2 MG/ML 2 ML VIAL IV PRN (10:22)
[2020-04-03] MEDS ORDERED: ALBUTEROL HFA 8 GM INHALER INH PRN (10:24)
[2020-04-03] MEDS ORDERED: BENZONATATE 100 MG CAPSULE PO PRN (10:24)
[2020-04-03] MEDS ORDERED: SODIUM CHLORIDE 0.9% 1000ML 1,000 ML IV SCH (10:30)
[2020-04-03] MEDS ORDERED: ACETAMINOPHEN 500 MG TAB PO PRN (11:06)
[2020-04-03] MEDS: carvediloL 12.5 MG TAB PO SCH (19:53)
[2020-04-03] MEDS ORDERED: MONTELUKAST SODIUM 10 MG TABLET PO SCH (21:00)
[2020-04-03] MEDS ORDERED: PANTOprazole 40 MG TAB PO SCH (21:00)
--- NOTE | 2020-04-03 22:49 | Consultation Report ---
DATE OF ADMISSION: 04/03/2020 CHIEF COMPLAINT: Questionable word finding difficulty. HISTORY OF PRESENT ILLNESS: This is a 79-year-old female with past medical history significant for hypertension, osteoporosis, hyperlipidemia, hypothyroidism, status post elective cardiac catheterization and stent to LAD, tolerated the procedure fine. As per nursing staff, there was some word finding difficulty and we are called for a consult. The patient is currently resting comfortably and hemodynamically stable. She says she is doing fine. Her speech is clear. Recent and remote memory is intact. No weakness in the hands or legs. She says she is ambulating in the room. Appetite is okay. Denies any chest pain, no shortness of breath, no cough, no feeling of hot or cold. No headache, no blurred vision, no earache, no runny nose, no sore throat, no nausea, no abdominal pain. Normal bowel and bladder movements. No swelling in the legs. The patient was having syncopal episodes and stress test was equivocal that is why she had a elective cardiac catheterization. ALLERGIES: TO CIPRO, BREO ELLIPTA, LISINOPRIL. PAST MEDICAL HISTORY: As mentioned above. PAST SURGICAL HISTORY: Status post cardiac catheterization and stent placement. MEDICATIONS: Currently the patient is on albuterol 2 puffs q. 6 hours p.r.n., aspirin 81 mg p.o. a.m., benzonatate 100 mg p.o. t.i.d. p.r.n., Coreg 12.5 mg p.o. b.i.d., Tylenol Extra Strength 1 tablet p.o. at bedtime, magnesium, Nexium 40 mg p.o. at bedtime, levothyroxine 75 mcg p.o. daily, Cozaar 100 mg p.o. daily, Singulair 10 mg p.o. at bedtime. FAMILY HISTORY: Significant for brother had cancer, diabetes. Sister has diabetes. Sister has heart disorder. Father had coronary thrombosis. Mother has cerebral thrombosis. SOCIAL HISTORY: . No smoking. Alcohol occasional. No drug use. REVIEW OF SYMPTOMS: As per HPI. Rest of review of symptoms negative. PHYSICAL EXAMINATION: GENERAL: The patient is of moderate build, not in acute distress. VITAL SIGNS: Temperature 36.8, pulse 66, respiratory rate 18, blood pressure 121/67, oxygen 95% on room air. HEENT: No pallor, no icterus. Extraocular muscles intact. NECK: No JVD, no neck masses, no carotid bruits. CARDIOVASCULAR: S1, S2 heard, regular rate and rhythm, no murmur, no gallop. RESPIRATORY SYSTEM: Normal AP diameter. No accessory muscle use. No wheezing, no crackles. ABDOMEN: Soft, bowel sounds present, nontender. No distention. CENTRAL NERVOUS SYSTEM: Alert, awake and oriented x3. Recent and remote memory intact. Speech clear.No facial droop. Power 5/5 in all extremities. Coordination of movements normal. Sjzwzd-dw-nijd test normal. Sensation is intact. Position sense intact. Able to lift her lower extremities and hold for 5 seconds. LABORATORY DATA: Unavailable. ASSESSMENT AND PLAN: This is a 79-year-old female status post elective cardiac catheterization and stent to LAD, seems questionable stroke-like symptoms. 1. Stroke-like symptoms. Questionable word finding difficulties. Currently, patient is stable, neurologically intact. We will get a CT of the head without contrast just to be sure and closely monitor in tele floor. 2. History of coronary artery disease status post elective cardiac catheterization and stent to left anterior descending. Post cath, further management as per cardiology. 3. Hypertension, currently on Coreg, Cozaar. Monitor blood pressure. 4. Hypothyroidism: Continue home Synthroid. 5. Deep venous thrombosis prophylaxis, SCDs as per cardio. 6. Disposition as per cardio. Addendum: Patient refused ct head. MTDD
--- NOTE | 2020-04-04 05:58 | Electrocardiogram Report ---
Test Reason : Blood Pressure : / mmHG Vent. Rate : 054 BPM Atrial Rate : 054 BPM P-R Int : 190 ms QRS Dur : 082 ms QT Int : 480 ms P-R-T Axes : 059 -05 044 degrees QTc Int : 455 ms Sinus bradycardia with marked sinus arrhythmia Poor R wave progression, consider anterior CO vs. lead placement vs. LVH Abnormal ECG When compared with ECG of 26-FEB-2020 14:36, Nonspecific T wave abnormality no longer evident in Lateral leads QT has lengthened Confirmed by Wellington Hook ([id number]) on 04/04/2020 5:58:18 AM Referred By: Mason Alaniz Confirmed By:Wellington Hook
[2020-04-04] MEDS ORDERED: LEVOTHYROXINE SODIUM 25 MCG TABLET PO SCH (06:30)
--- NOTE | 2020-04-04 07:06 | CT Scan Report ---
HEAD CT NONCONTRAST CT DOSE: 638.56 mGycm HISTORY: cva? word finding difficulty? TECHNIQUE: Multiaxial CT images of the head were performed without the use of intravenous contrast. A utomated exposure control was utilized for this study. A dose lowering technique was utilized adheri ng to the principles of ALARA. Comparison: Head CT 02/15/2013. Findings: The paranasal sinuses and mastoid air cells are clear. The calvarium and skull base are int act. The ventricles and sulci are within normal limits. There is no mass, hematoma, midline shift, or acute infarct. Impression: No acute intracranial abnormality. ACT 112: Negative or not required by law. Electronically signed by: Bobby Luis M.D. 04/04/2020 7:05 AM
[2020-04-04 07:29] LABS: Basophils # (auto) 0.06 K/uL (0-0.2); Basophils % (auto) 0.6 %; Eosinophils # (auto) 0.11 K/uL (0-0.5); Eosinophils % (auto) 1.1 %; Hematocrit (blood only) 39.3 % (37-47); Hemoglobin 12.2 g/dL (12.0-16.0); Immature Granulocytes # (auto) 0.04 K/uL (0.00-0.02); Immature Granulocytes % (auto) 0.4 %; Lymphocytes # (auto) 4.09 K/uL (1.2-3.4); Lymphocytes % (auto) 39.1 %; Mean Corpuscular Hemoglobin 28.2 pg (25-34); Mean Corpuscular Volume 90.8 fL (80-100); Mean Platelet Volume 9.8 fL (7.4-10.4); Monocytes # (auto) 0.84 K/uL (0.11-0.59); Neutrophils # (auto) 5.31 K/uL (1.4-6.5); Neutrophils % (auto) 50.8 %; Platelet Count 297 K/uL (130-400); RDW Coefficient of Variation 14.4 % (11.5-14.5); RDW Standard Deviation 48.3 fL (36.4-46.3); Red Blood Count 4.33 M/uL (4.2-5.4); White Blood Count 10.45 K/uL (4.8-10.8)
[2020-04-04 08:05] LABS: BUN Creatinine Ratio 16.5 (10-20); Calcium 8.9 mg/dl (8.5-10.1); Creatinine Clr Calc Pharmacy 51.3 ml/min; Est GFR (African American) 84.4; Est GFR (Non-African American) 72.8; Potassium 3.9 mmol/L (3.5-5.1)
[2020-04-04] MEDS: carvediloL 12.5 MG TAB PO SCH (08:06)
[2020-04-04] MEDS ORDERED: LOSARTAN POTASSIUM 50 MG TAB PO SCH (09:00)
[2020-04-04] MEDS ORDERED: CLOPIDOGREL BISULFATE 75 MG TAB PO SCH (09:00)
[2020-04-04] MEDS ORDERED: ASPIRIN 81 MG ECTAB PO SCH (09:00)
--- NOTE | 2020-04-04 10:39 | Cardiology Progress Note ---
Date of Service April 04, 2020 Assessment & Plan (1) CAD (coronary artery disease): Status post successful PCI to a discrete mid LAD lesion with drug-eluting stent. Has received Plavix load and will be discharged home on aspirin and Plavix daily, I have already sent the prescription to her preferred pharmacy via [employer] EMR She will be continued on her other outpatient medications including her current doses of carvedilol, atorvastatin and losartan. She is are scheduled to follow-up with me on April 24 and we will keep that appointment. For discharge today Activity reviewed (2) PAF (paroxysmal atrial fibrillation): Brief episode during the intervention. Patient is to return her Zio patch monitor and we will review the results to determine plan going forward. Subjective Patient seen and examined, chart reviewed. Patient states that she is feeling well and no events reported overnight. Currently denies any chest pain, shortness of breath, palpitations, lightheadedness, dizziness or syncope. Her symptoms were reproduced during balloon inflation of her mid LAD lesion. Telemetry reviewed: Normal sinus rhythm without arrhythmia or significant ectopy. I also spoke with her by phone to update him on her clinical status and plan going forward. Review of Systems Review of Systems: All systems reviewed & are unremarkable except as noted in HPI & below Physical Exam Physical Exam: General: Awake, alert and oriented x 3. No acute distress. HEENT: Normocephalic, atraumatic. Pupils equal, round and reactive to light and accommodation. Extraocular muscles are intact. Anicteric sclera. Moist mucous membranes. Neck: No JVD. No bruit. Cardiovascular: Regular. Positive S-4. Normal S-1 and S-2. No S-3. No murmurs or rubs. Pulmonary: Clear to auscultation B/L. No rales, rhonchi or wheezing Abdomen: Bowel sounds x 4, soft. No rebound, guarding or tenderness. No organomegaly. Extremities: No clubbing, cyanosis or edema. +2 pedal pulses bilaterally. Skin: Warm and dry. Results & Data Vital Signs (Past 12 Hours) Vital Signs Temp Pulse Pulse Resp BP BP Pulse Ox 04/04/20 08:05 36.6 C 54 L 18 163/88 H 166/92 H 97 04/04/20 03:30 36.6 C 50 L 17 164/76 H 99 04/04/20 00:01 54 L 04/03/20 23:52 36.6 C 61 17 122/82 99
--- NOTE | 2020-04-04 10:41 | Discharge Summary ---
Date of Service April 04, 2020 Principal Diagnosis CAD s/p PCI to mid LAD Discharge Data Allergies Allergy/AdvReac Type Severity Reaction Status Date / Time Cipro AdvReac Intermediate VOMITING Verified 12/09/17 10:20 ciprofloxacin AdvReac Intermediate VOMITING Verified 04/03/20 07:15 fluticasone furoate AdvReac Intermediate Cough Verified 04/03/20 07:15 [From Breo Ellipta] lisinopril AdvReac Intermediate Cough Verified 04/03/20 07:15 vilanterol AdvReac Intermediate Cough Verified 04/03/20 07:15 [From Breo Ellipta] Consultations 04/03/20 10:24 Consult Cardiac Rehabilitation Routine 04/03/20 20:39 Consult Hospitalist Stat Procedures Performed Operation Date: 04/03/20 08:00 Actual Procedures p Cath, Left with Cors and Vent - Robert Olvera MD s Cineradiography w/Routine Exam - Robert Olvera MD s Drug Eluting Stent SGl Vessel - Juan Valencia MD Ordered Studies 04/03/20 08:31 CL Cath Imgs for PACS use only Routine 04/03/20 20:55 CT head/brain wo con Urgent Hospital Course (1) CAD (coronary artery disease): Status post successful PCI to a discrete mid LAD lesion with drug-eluting stent. Has received Plavix load and will be discharged home on aspirin and Plavix daily, I have already sent the prescription to her preferred pharmacy via [employer] EMR She will be continued on her other outpatient medications including her current doses of carvedilol, atorvastatin and losartan. She is are scheduled to follow-up with me on April 24 and we will keep that appointment. For discharge today Activity reviewed (2) PAF (paroxysmal atrial fibrillation): Brief episode during the intervention. Patient is to return her Zio patch monitor and we will review the results to determine plan going forward. Total Time Total Time Spent Total Time Spent (In Minutes): 36 Discharge Plan Discharge Items Reason For Visit: PCI, PAROXYSMAL AFIB Discharge Diagnosis: Coronary artery disease status post PCI to the mid LAD. Activity: Resume your previous activity Non-emergency contact: Primary Care Provider Call non-emergency contact if: you have any medication questions Follow-up/Referrals: Gail Weiss [Primary Care Provider] - Diet: Heart Healthy Addtl Attending Provider Instructions: She is scheduled to follow-up with me on April 24 and we will keep that appointment. Pending Studies at Discharge: No Stand-Alone Forms: My [facility], Smoking Cessation Medications and DC Order Prescriptions: New clopidogrel 75 mg Tablet 75 mg PO QAM Qty: 30 RF: 0 Continued carvedilol [Coreg] 12.5 mg Tablet 12.5 mg PO BID Qty: 0 RF: 0 esomeprazole magnesium [Nexium] 40 mg Capsule,Delayed Release(Dr/Ec) 40 mg PO HS Qty: 0 RF: 0 albuterol sulfate 90 mcg/actuation Hfa Aerosol Inhaler 2 puff INHALATION Q6H PRN (Reason: Shortness Of Breath Or Wheezing) Qty: 1 RF: 0 diphenhydramine-acetaminophen [Tylenol PM Extra Strength] 25-500 mg Tablet 1 tab PO HS Qty: 0 RF: 0 aspirin 81 mg Tablet,Delayed Release (Dr/Ec) 81 mg PO QAM Qty: 0 RF: 0 montelukast [Singulair] 10 mg tablet 10 mg PO PM Qty: 30 RF: 4 levothyroxine 25 mcg tablet 25 mcg PO .COMPLEX 90 Days Qty: 45 RF: 1 levothyroxine 50 mcg tablet 50 mcg PO .COMPLEX 90 Days Qty: 45 RF: 1 Qvar RediHaler 40 mcg/actuation HFA aerosol breath activated 1 puffs INH BID PRN (Reason: Shortness Of Breath) RF: 0 zoledronic aapj-pzglweia-gezvx 5 mg/100 mL piggyback 5 mg IV .COMPLEX RF: 0 benzonatate 100 mg capsule 100 mg PO TID PRN (Reason: cough) Qty: 30 RF: 0 losartan 100 mg Tablet 100 mg PO DAILY RF: 0 Admission Data Admit Date/Time: 04/03/20 09:35 Attending Provider: Robert Olvera Admit Provider: Robert Olvera Primary Care Provider: Gail Weiss Other Providers: Patrice Gamboa
[2020-04-05] MEDS ORDERED: LEVOTHYROXINE SODIUM 50 MCG TABLET PO SCH (06:30)
== END 2020-04-04 12:48 | disposition home or self-care (01) ==
LOC: 2S 07:00 → CC 07:00